=== PATIENT | female | born 1965 | race Caucasian/White ===

== ENCOUNTER → 2018-04-29 16:31 | Outpatient (CLI) | payer BC ==
[2012-06-24 22:04] VITALS: BMI 20.4
== END | disposition home or self-care (01) ==
LOC: D.MAMMO 15:30
DX: Z12.31 Encounter for screening mammogram for malignant neoplasm of breast (principal)

== ENCOUNTER → 2018-05-28 18:15 | Outpatient (CLI) | payer BC ==
[2012-06-24 22:04] VITALS: BMI 20.4
== END | disposition home or self-care (01) ==
LOC: D.MAMMO 10:30
DX: R92.8 Other abnormal and inconclusive findings on diagnostic imaging of breast (principal)

== ENCOUNTER → 2018-08-28 09:18 | Outpatient (CLI) | payer BC ==
[2012-06-24 22:04] VITALS: BMI 20.4
== END | disposition home or self-care (01) ==
LOC: D.RAD 09:18
DX: R11.2 Nausea with vomiting, unspecified (principal); R10.13 Epigastric pain; K21.9 Gastro-esophageal reflux disease without esophagitis